=== PATIENT | female | born 1975 | race Caucasian/White ===

== ENCOUNTER 2017-07-21 12:02 | Observation (INO) | payer OTHER ==
[2017-07-21] MEDS ORDERED: Sodium Chloride 0.9% 5 ML Syringe FLUSH PRN (12:14)
[2017-07-21] MEDS ORDERED: Lactated Ringers 1,000 ML IV ONE (13:00)
[2017-07-21] MEDS: busPIRone 5 MG Tab PO SCH ×2 (13:42→20:54)
[2017-07-21] MEDS: Calcium Citrate/Vitamin D3 315 MG-250 Unit Tab PO SCH (13:43)
[2017-07-21] MEDS: Multivitamins with Minerals/Iron/Folic Acid/Lycopene Tab PO SCH (13:44)
[2017-07-21] MEDS ORDERED: Lactated Ringers 1,000 ML IV SCH (14:00)
[2017-07-21] MEDS ORDERED: traZODone 50 MG Tab PO SCH (21:00)
[2017-07-22] MEDS ORDERED: diphenhydrAMINE 25 MG Cap PO ONE (04:10)
[2017-07-22] MEDS: Calcium Citrate/Vitamin D3 315 MG-250 Unit Tab PO SCH (08:33)
[2017-07-22] MEDS: Multivitamins with Minerals/Iron/Folic Acid/Lycopene Tab PO SCH (08:34)
[2017-07-22] MEDS: busPIRone 5 MG Tab PO SCH (08:34)
[2017-07-22] MEDS ORDERED: Escitalopram 10 MG Tab PO SCH (09:00)
[2017-07-22] MEDS ORDERED: Biotin/Folic Acid/Vitamin C/Vitamin B Complex Tab PO SCH (09:00)
--- NOTE | 2017-07-23 00:29 | DISCH ---
DISCHARGE DIAGNOSIS: 1. Decreased oral intake related to depression. She was positive for ketones per [facility]. 2. Generalized abdominal pain. 3. Severe depression and anxiety. 4. Insomnia. 5. Urinary urgency. BRIEF HISTORY: This is a 42-year-old female who initially presented to the clinic with concerns of not eating and not sleeping in relation to depression and anxiety. She felt that this had exacerbated over the course the past one month or more. She related that she did lose a daughter to approximately four years ago and is upcoming on the 5-year anniversary. She feels this may have triggered her increased symptoms. Her eating was sluggish. She did have some emesis after taking in solids. She was taking in a small amount of fluids. She was unable to sleep more than 2 to 3 hours per night and was unable to nap during the day. She denied any suicidal ideations. She does reside in the [facility]. She reports she has good friends and the massage operator that she has been discussing her symptoms with and feels that this has been effective. HOSPITAL SUMMARY AND LABS: The patient was admitted for IV fluids. She did receive 2 L of lactated Ringer's over the course of the past 24 hours. She had CBC, panel and TSH completed in the clinical setting previously, which was essentially unremarkable. Her B12 was slightly elevated and H. pylori and vitamin D level are pending. Today, she has been up and about and she is noting some improvement in her symptoms. Breakfast included toast and eggs along with fluids. She did not experience any nausea or vomiting after eating. She required some diphenhydramine during the night for sleep which was effective and she has been started on trazodone 50 mg at bedtime along with BuSpar 7.5 mg three times a day in addition to her Lexapro. MEDICATIONS ON DISCHARGE: Lexapro daily, BuSpar 7.5 mg t.i.d., trazodone 50 mg at bedtime. She will continue with her calcium supplement and her multivitamin supplement. The patient also may take Benadryl 25 mg as needed for her insomnia. PHYSICAL EXAMINATION: CONSTITUTIONAL: She is oriented x3. She is well developed, well nourished. She does not appear ill. HEENT: Head is normocephalic. Conjunctivae are clear. No nasal drainage. RESPIRATORY: Lung sounds are clear to auscultation without wheezing, rhonchi, or rales. CARDIOVASCULAR: Heart rate and rhythm is regular. S1, S2. ABDOMEN: Soft, nontender. Bowel sounds are present. SKIN: Warm and dry to touch. Skin turgor intact without dehydration. EXTREMITIES: Noted no lower extremity edema. PSYCHIATRIC: Speech is normal. She does have a flat affect, but does make good eye contact. Noted no abnormalities in her judgment or thought content. She does not appear angry or inappropriate. She does become teary eyed when speaking of the daughter that she did lose to . DISPOSITION: The patient received her discharge packet. She will be continuing on her medications as previously stated including her Lexapro, BuSpar, trazodone, and Benadryl as needed. She will also continue with her calcium. She does have a followup appointment for re-evaluation in the clinic in August. She will notify us in the interim of any other questions or concerns, and she will be notified of the lab reports regarding the H. pylori and the vitamin D level when received. The patient also was evaluated by [employer]. Outside Services were discussed and offered to the patient, she declines any additional followup outside of the [facility]. Encouraged her to walk and get outdoors daily. Suggested developing an exercise regime to promote well being. /[id number]/MODL MTDD
== END 2017-07-22 12:24 | disposition home or self-care (01) ==
LOC: KA.MS 12:02
PROVIDERS: ADMIT Nurse Practitioner Family; ATTEND Family Medicine
DX: F33.2 Major depressive disorder, recurrent severe without psychotic features (principal); R10.84 Generalized abdominal pain; F41.9 Anxiety disorder, unspecified; R39.15 Urgency of urination; F51.05 Insomnia due to other mental disorder; G43.109 Migraine with aura, not intractable, without status migrainosus; Z90.49 Acquired absence of other specified parts of digestive tract; Z79.899 Other long term (current) drug therapy; Z88.8 Allergy status to other drugs, medicaments and biological substances; Z98.890 Other specified postprocedural states; Z90.89 Acquired absence of other organs
CPT/HCPCS: 96360; 96361; A9270-GY; G0378; G0379; J7120